=== PATIENT | female | born 1985 | race Caucasian/White ===

== ENCOUNTER 2020-04-14 01:06 | Outpatient (CLI) | payer MEDICAID, SELFPAY ==
--- NOTE | 2020-04-14 07:15 | DI.US_ITS ---
EXAM: US EXTREMITY VENOUS BI CLINICAL HISTORY: Unexplained LE edema,bilat r60.0. TECHNIQUE: Ultrasound performed using standard protocol. COMPARISON: US [facility] OB ULTRASOUND from 12/10/2012 FINDINGS: Duplex venous ultrasound was performed bilaterally according to the usual protocol. The deep veins ar e freely compressible throughout and there is normal flow augmentation with manual calf compression. 2D and Doppler evaluation are unremarkable. IMPRESSION: No evidence of deep venous thrombosis of the right or left lower extremity. DATA REPOSITORY:
== END 2020-04-14 01:26 ==
PROVIDERS: PCP Family Medicine; Visit Provider Family Medicine
DX: R60.0 Localized edema (principal)
CPT/HCPCS: 36415; 80053; 93970

== ENCOUNTER 2020-04-22 03:37 | Outpatient (CLI) | payer MEDICAID, SELFPAY ==
[2020-04-22] MEDS: Breeza Beverage 473 ML BTL PO ×2 (07:58→07:59)
[2020-04-22] MEDS: Omnipaque 350 MG/ML 50 ML BTL PO (07:58)
[2020-04-22] MEDS: Omnipaque 350 MG/ML 100 ML BTL IJ (08:49)
--- NOTE | 2020-04-22 08:57 | DI.CT_ITS ---
EXAM: CT ABDOMEN PELVIS W CLINICAL HISTORY: Unexplained edema, evaluate for pelvic/abd mass TECHNIQUE: Imaging Protocol: Axial computed tomography images with coronal and sagittal reformatted images were created and reviewed CONTRAST MATERIAL: Intravenous: Omnipaque 350 Contrast volume:100 mL Oral: Yes COMPARISON: CT ABD PELVIS WITH CONTRAST from 11/12/2014 FINDINGS: ABDOMEN: Lung Bases: Normal where visualized. Liver: Diffuse decreased attenuation of the liver consistent with fatty infiltration. No measurable mass. Portal, Superior Mesenteric, and Splenic Veins: Unremarkable. Gallbladder and Biliary Tract: No radiodense calculus or dilation. Pancreas: Normal density, no abnormal calcifications or inflammatory process. Spleen: Normal. Adrenals: No masses seen. Kidneys: Normal size, contour and axis. No radiodense stones or obstructive uropathy. No masses seen. Abdominal Aorta: Abdominal portion non-dilated. Mild atherosclerosis. Bowel: No obstruction or bowel wall thickening. No evidence of appendicitis. Small hiatal hernia. Peritoneal Cavity: No ascites, collection or mesenteric inflammatory response. No free air. Lymph Nodes: Within normal limits. Bones: Within normal limits for the patient's age. Soft Tissues: Unremarkable. PELVIS: Bladder: Symmetric distention, no gross wall thickening. Reproductive Organs: Unremarkable as visualized. Lymph Nodes: Within normal limits. Bones: Within normal limits for the patient's age. IMPRESSION: Unremarkable CT scan of the abdomen and pelvis. No evidence of a pelvic mass. RADIATION DOSE DELIVERED: 819.4mGy.cm Total DLP DATA REPOSITORY: All CT scans at this facility are submitted to the National Radiology Data Registry (NRDR) Dose Index Registry (DIR) with the [employer] (ACR). RADIATION OPTIMIZATION: All CT scans at this facility use at least one of these dose optimization te chniques: automated exposure control; mA and/or kV adjustment per patient size (includes targeted exa ms where dose is matched to clinical indication); or iterative reconstruction.
[2020-04-22] MEDS: Normal Saline Flush 10 ML SYR IVP (09:06)
[2020-04-22] MEDS: Normal Saline - Diluent 50 ML VIAL IV (09:06)
== END 2020-04-22 03:57 ==
PROVIDERS: PCP Family Medicine; Visit Provider Family Medicine
DX: R60.0 Localized edema (principal)
CPT/HCPCS: 74177; J3490; Q9967

== ENCOUNTER 2020-05-11 01:56 | Outpatient (CLI) | payer MEDICAID, SELFPAY ==
--- NOTE | 2020-05-11 10:20 | DI.US_ITS ---
APPROVED REPORT EXAM: Comprehensive 2D, Doppler, and color-flow Echocardiogram Patient Location: Out-Patient Manager Staffing: Genny Johnson RDCS (AE) Indications: Bilateral Edema, Dyspnea, smoker Other Information Study Quality: Adequate Conclusion Left Ventricle : The left ventricle is normal size. The left ventricular systolic function is normal. The left ventricular ejection fraction is within the normal range. There is normal left ventricular wall thickness. There is normal LV segmental wall motion. The left ventricular diastolic function is normal. LVEF is 61%. Right Ventricle : The right ventricle is normal size. The right ventricular systolic function is norm al. Atria : The left atrium size is normal. The right atrium size is normal. Valves: There are no hemodynamically significant valvular lesions. Great Vessels : The aortic root is normal in size. The ascending aorta is normal in size. Aortic arch is normal in caliber. IVC is normal in size and collapses >50% with inspiration. Please see remainder of study for further details. Wall motion Left Ventricle The left ventricle is normal size. The left ventricular systolic function is normal. The left ventric ular ejection fraction is within the normal range. There is normal left ventricular wall thickness. T here is normal LV segmental wall motion. The left ventricular diastolic function is normal. There is no ventricular septal defect visualized. LVEF is 61%. Right Ventricle The right ventricle is normal size. The right ventricular systolic function is normal. Atria The left atrium size is normal. The right atrium size is normal. The interatrial septum is intact wit h no evidence for an atrial septal defect. Aortic Valve The aortic valve is normal in structure. Aortic valve is trileaflet. There is no aortic valvular sten osis. Trace aortic regurgitation. Mitral Valve Mild mitral annular calcification. No evidence of mitral valve stenosis. Trace mitral regurgitation. Tricuspid Valve The tricuspid valve is normal in structure. There is no tricuspid valve stenosis. Trace tricuspid reg urgitation. Unable to assess PA pressure. Pulmonic Valve The pulmonary valve is normal in structure. There is no pulmonic valvular stenosis. Trace pulmonic re gurgitation. Great Vessels The aortic root is normal in size. The ascending aorta is normal in size. Aortic arch is normal in ca liber. IVC is normal in size and collapses >50% with inspiration. Pericardium There is no pericardial effusion. 2D Dimensions IVSD d PLAX 0.89 cm F: 0.6-1.0 LV Vol A2C d MOD 108.0 mL LVPW d PLAX 0.86 cm F: 0.6 - 1.0 LV Vol A4C d MOD 89.1 mL LVID d PLAX 4.69 cm F: 3.8 - 5.2 LA vol/ BSA A2C s A-L 26.2 mL/m2 LVDs 3.10 cm F: 2.2 - 3.5 LA vol/ BSA A4C s A-L 20.1 mL/m2 Ao Root d 2.65 cm F: 2.7 - 3.3 LA Vol/ BSA Biplane s A-L 23.6 mL/m2 RA Area A4C 14.92 cm2 LA Area A4C s MOD 15.28 cm2 RA Vol/ BSA A4C s A-L 20.7 mL/m2 LA Area A2C s MOD 17.01 cm2 Ao Asc Diam d 3.02 cm F: 2.3 - 3.1 LV EF A4C MOD 61.3 % LV EF Teichholz 62.3 % LV EF A2C MOD 61.9 % LVEF (Payan's) 60.17 % F: 54 - 74 LV EF Biplane MOD 60.2 % LV Volume 77.40 mL F: 46 - 106 SV 60.66 mL LV Volume Index 41.61 mL/m2 F: 29 - 61 SV Index 32.49 mL/m2 LV Vol Biplane MOD 100.8 mL FS 33.55 % M-Mode TAPSE 2.04 cm (M/F) >1.7 LV Diastology MV E' medial 0.107 (>0.07 m/s) E/A Ratio 1.2 LV E/e MED 9.20 (<14) MV E Vmax 0.98 (0.4-1.3 m/s) MV E' lateral 0.148 (>0.1 m/s) MV A Vmax 0.80 (0.4-1.3 m/s) LV E/e LAT 6.65 (<14) MV E/A Ratio 1.17 MV E/E' medial 9.23 MV E/E' lateral 6.66 Aortic Valve LVOT Area 3.02 cm2 AoV Area Vmax 2.45 cm2 LVOT Vmax 1.40 m/s AoV Area/ BSA (Vmax) 1.31 cm2/m2 LVOT Mean [place]. 0.88 m/s CHUNG Mean [place]. 2.46 cm2 LVOT Peak Grad 7.8 mmHg CHUNG Mean [place]. Index 1.32 cm2/m2 LVOT Mean Grad 3.7 mmHg LVOT VTI 0.317 m LVOT Diam s 1.95 cm AoV Vmax 1.73 m/s Velocity Ratio 0.80 AoV Mean [place]. 1.08 m/s AoV Peak Grad 12.0 mmHg LVOT SV 95.93 mL AoV Mean Grad 5.6 mmHg AoV VTI 0.309 m AoV Area VTI 3.10 cm2 AoV Area/ BSA (VTI) 1.66 cm/m2 Mitral Valve MV DT 234 (160-240 msec) MV PHT 68 msec MV Area PHT 3.24 cm2 MV VTI 0.427 m MV VTI Annulus 0.421 m MV Area VTI 2.21 (4.0-6.0 cm2) Pulmonary Valve PV Vmax 1.17 (0.5-1.5 m/s) RVOT Peak Gr. 4.29 mmHg PV Peak Grad 5.4 mmHg RVOT Mean Gr. 1.85 mmHg PV Mean Grad 3.0 mmHg RVOT VTI 0.197 m PV VTI 0.254 m RVOT Vmax 1.04 m/s
== END 2020-05-11 01:57 ==
LOC: DI 01:57
PROVIDERS: PCP Family Medicine; Visit Provider Family Medicine
DX: R60.0 Localized edema (principal); R06.00 Dyspnea, unspecified; F17.210 Nicotine dependence, cigarettes, uncomplicated
CPT/HCPCS: 93306

== ENCOUNTER 2021-05-24 20:33 | Emergency (ER) | payer MEDICAID, SELFPAY ==
[2021-05-24 20:37] VITALS: BP 150/91; PULSE 73; RESP 18; TEMP 36.9; O2SAT 99
--- NOTE | 2021-05-24 20:58 | ED.GENADUL_ITS ---
Discharge Plan Disposition Patient Disposition: HOME Condition: Improving Discharge Details Clinical Impression: Acute facial pain Primary Care Provider: Ruben Valentin ED Provider: Phan Campuzano Home Meds and New Rx's Prescriptions: Continued cetirizine 10 mg tablet 10 mg PO DAILY Qty: 90 3RF buspirone 10 mg tablet 10 mg PO BID Qty: 180 3RF furosemide 20 mg tablet 20 mg PO DAILY PRN (Reason: swelling) Qty: 60 0RF pantoprazole 40 mg tablet,delayed release (DR/EC) 40 mg PO DAILY Qty: 90 3RF methadone 10 mg tablet 50 mg PO DAILY 0RF albuterol sulfate [ProAir HFA] 90 mcg/actuation HFA aerosol inhaler 1 puff Inhalation Q4H PRN (Reason: shortness of breath or wheezing) Qty: 18 3RF acetaminophen [Acetaminophen Extra Strength] 500 MG tablet 1,000 mg PO PRN [id number] Discharge Instructions Instructions: Temporomandibular Disorder (ED) Additional Instructions: Continue with ibuprofen and Tylenol as needed, ice or heat as needed, if you develop any strange neurologic symptomatology such as severe headache nausea vomiting weakness change in speech please return to the emergency department. Please follow-up with your primary care physician. Medical Decision Making 35-year-old female currently in the methadone program, history of TMJ syndrome, presents with acute onset left ear and jaw discomfort, afebrile nontoxic neurologically intact, TMs unremarkable, no evidence of deep space infection of mouth head or neck, no external signs of trauma the patient describes having 3 days ago involving a folding chair leg, likely TMJ syndrome versus atypical migraine versus dental pain versus less likely intracranial injury from contact with folding chair given this event happened 3 days ago without symptomatology and with neuro exam intact, no evidence of TM rupture or otitis media. Trial of dexamethasone and acetaminophen. Patient already endorsing feeling better before medication administered likely discharge home with home care instructions and encouragement to follow-up 22: 13 patient resting comfortably feeling much better after medications. Neuro logically intact. Symptomatology largely resolved. Home care instructions and return precautions given HPI General Date/Time Provider Initiated Documentation: 05/24/21 20:44 . HPI Narrative: 35-year-old female history of opiate abuse, currently enrolled in a methadone program, TMJ, presents with left jaw and ear discomfort that began approximately 1 hour ago, patient endorses she actually was struck by the legs of a folding chair 3 days ago on the left side of her face, denies loss of conscious vomiting weakness or numbness, denies fevers or chills, does endorse chronic dental issues but denies any trouble swallowing, or speaking Related Data Home Medications Medication Instructions Recorded Confirmed acetaminophen 500 mg tablet 1,000 mg PO PRN PRN 02/23/17 05/24/21 (Acetaminophen Extra Strength) buspirone 10 mg tablet 10 mg PO BID #180 tab 12/31/19 05/24/21 methadone 10 mg tablet 50 mg PO DAILY tab 12/31/19 05/24/21 cetirizine 10 mg tablet 10 mg PO DAILY #90 tab 03/29/20 05/24/21 furosemide 20 mg tablet 20 mg PO DAILY PRN #60 tab 04/07/20 05/24/21 albuterol sulfate 90 mcg/actuation 1 puff INHALATION Q4H PRN #18 g 05/08/21 05/24/21 aerosol inhaler (ProAir HFA) pantoprazole 40 mg tablet,delayed 40 mg PO DAILY #90 tab 05/09/21 05/24/21 release Previous Rx's Medication Instructions Recorded buspirone 10 mg tablet 10 mg PO BID #180 tab 12/31/19 cetirizine 10 mg tablet 10 mg PO DAILY #90 tab 03/29/20 furosemide 20 mg tablet 20 mg PO DAILY PRN #60 tab 04/07/20 albuterol sulfate 90 mcg/actuation 1 puff INHALATION Q4H PRN #18 g 05/08/21 aerosol inhaler (ProAir HFA) pantoprazole 40 mg tablet,delayed 40 mg PO DAILY #90 tab 05/09/21 release Allergies Allergy/AdvReac Type Severity Reaction Status Date / Time No Known Drug Allergies Allergy Verified 05/24/21 20:41 General Stated Complaint: DentalOral JEFF: 4 Review of Systems Narrative: Review of Systems Constitutional: negative Eyes: negative ENT: Left facial pain/ear pain Cardiovascular: negative Respiratory: negative Gastrointestinal: negative : negative Musculoskeletal: negative Skin: negative Neurologic: negative Psych: negative PFSH All Active Problems (Updated 05/24/21 @ 22:14 by Phan Campuzano MD) Acute facial pain (Acute) Bilateral lower extremity edema (Acute) Tobacco use disorder (Chronic) PPD Heartburn (Acute 02/19/13) CTS (carpal tunnel syndrome) (Acute) Mild intermittent asthma (Acute) TMJ syndrome (Acute) Medical History (Updated 05/24/21 @ 22:14 by Phan Campuzano MD) Acute low back pain (02/19/13) Asthma inhaler prn Surgical History (Updated 11/23/19 @ 16:01 by Socorro Guzman RN) Cervical Procedure (~2001) cryosurgery Fracture, Closed Treatment leg H/O tubal ligation 2019 History of appendectomy (~04/1994) Family History (Updated 11/23/19 @ 15:50 by Socorro Guzman RN) Mother Skin cancer Cervical cancer Father Hypertension Alcohol abuse Maternal Grandmother Stroke Anxiety Social History (Updated 04/07/20 @ 09:38 by Mitra Padilla LPN) Smoking/Tobacco Use Status: Current every day Tobacco Type: cigarettes Smoking packs per day: 1 Smoking cigarettes per day: 20.0 Smoking risk assessment performed?: Yes Alcohol Intake: never Drug use: Daily Substance use type: marijuana Adopted: No Foster care: No Household members: spouse Housing: house Number of Children: 3 Do you need help understanding health information?: Rarely Sexually active: Yes Do you think of yourself as: straight/heterosexual Current gender identity: female What is your relationship status?: Panel score (0-1 are the most socially isolated patients): 1 What type of physical activity do you participate in: regular exercise Seatbelt use: always Drive intox or ride w/intox 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 Working smoke detector in home: Yes Fire extinguisher in home: Yes Carbon monox detector in home: Yes Do you feel safe at home: Yes Do you feel safe in your relationship?: Yes Exam Narrative Exam Narrative: Physical Examination General: alert, awake, cooperative, resting comfortably, no acute distress HEENT: normocephalic, atraumatic; PERRL, EOM intact, conjunctiva normal; no nasal discharge; moist mucous membranes, oral and pharyngeal mucosa normal, tolerating secretions; TMs unremarkable, no crepitus to TMJ, multiple dental caries without evidence of periapical abscess, no induration of submental submandibular or sublingual space. Normal voice, no rash to face; no evidence of ecchymosis deformity abrasion or laceration at site of contact with folding chair leg Neck: supple, trachea midline; full ROM Chest: normal to inspection Respiratory: normal respiratory effort, speaking in full sentences, clear to auscultation, no wheezing, rales or rhonchi Cardiac: regular rate, regular rhythm, S1S2 intact, no murmurs rubs or gallops GI: abdomen soft, non-tender, non-distended; no palpable mass or hepatosplenomegaly Skin: no lesions, rashes or trauma appreciated Neuro: AAOx3, normal speech, moving all extremities Psych: Appropriate mood and affect Course Vital Signs Vital signs: Vital Signs Temperature 36.9 C 05/24/21 20:37 Pulse 73 05/24/21 20:37 Respiratory Rate 18 05/24/21 20:37 Blood Pressure 150/91 H 05/24/21 20:37 Pulse Oximetry 99 05/24/21 20:37 Temperature 36.9 C 05/24/21 20:37 Temperature Source Temporal Artery Scan 05/24/21 20:37 Pulse 73 05/24/21 20:37 Respiratory Rate 18 05/24/21 20:37 Respiratory Effort Non-Labored 05/24/21 20:42 Blood Pressure 150/91 H 05/24/21 20:37 Blood Pressure Position Sitting 05/24/21 20:37 Pulse Oximetry 99 05/24/21 20:37 Oxygen Delivery Method Room Air 05/24/21 20:37 Oxygen Flow Rate 0 05/24/21 20:37
[2021-05-24] MEDS: Dexamethasone 4 MG TAB 10 MG PO (21:03)
[2021-05-24] MEDS: Acetaminophen 325 MG TAB 650 MG PO (21:03)
== END 2021-05-24 22:18 | disposition home or self-care (01) ==
PROVIDERS: Emergency Provider Emergency Medicine; PCP Family Medicine
DX: R68.84 Jaw pain (principal); R51.9 Headache, unspecified; H92.02 Otalgia, left ear
CPT/HCPCS: 99282; J8540

== ENCOUNTER 2021-05-25 00:42 | Outpatient (CLI) | payer MEDICAID, SELFPAY ==
--- NOTE | 2021-05-25 06:15 | DI.US_ITS ---
Exam(s) US ABDOMEN EXAM: US ABDOMEN CLINICAL HISTORY: Previously seen, needs reassessment,fatty liver, r76.0 TECHNIQUE: Ultrasound of complete upper abdomen performed using standard protocol. COMPARISON: CT scan April 2020 was reviewed FINDINGS: There is no ascites LIVER: Hyperechoic indicating steatosis. Upper normal size. No distinct lesions. GALLBLADDER/BILIARY: Gallbladder is contracted and not well visualized on this study. The common hepatic duct isnot dilated, measuring 4-5mm at the level of rebel hepatis. PANCREAS: There is no evidence of pancreatic mass nor dilatation of the pancreatic duct. SPLEEN: The spleen is not enlarged and there are no intrasplenic lesions evident. KIDNEYS:Kidneys exhibit normal size with no evidence of solid mass, calculus, nor hydronephrosis. No cortical cysts evident. ABDOMINAL AORTA: There is no evidence of abdominal aortic aneurysm. IVC: Normal diameter where visualized. IMPRESSION: 1. Gallbladder is contracted and not very well visualized on this study 2. Hepatic steatosis noted. Correlation with appropriate hepatic blood work recommended. There are no discrete focal hepatic lesions evident 3. There is no ascites. DATA REPOSITORY:
== END 2021-05-25 01:02 ==
PROVIDERS: PCP Family Medicine; Visit Provider Family Medicine
DX: K76.0 Fatty (change of) liver, not elsewhere classified (principal)
CPT/HCPCS: 76700

== ENCOUNTER 2021-06-02 03:16 | Outpatient (CLI) | payer MEDICAID, SELFPAY ==
[2021-06-02 16:54] LABS: Iron 67 ug/dL (50-170); Total Iron Binding Capacity 425 ug/dL (250-450); Transferrin Sat 16 % (15-50)
[2021-06-02 17:05] LABS: ALT 55 U/L (14-59); AST 31 U/L (15-37); Albumin 3.6 g/dL (3.4-5.0); Alkaline Phosphatase 121 U/L (46-116); Anion Gap 8.3 mmol/L (3-11); BUN 12 mg/dL (7-18); Bilirubin, Total 0.3 mg/dL (0.2-1.0); CO2 26.7 mmol/L (21.0-32.0); CREATININE 0.8 mg/dL (0.55-1.02); Calcium 8.7 mg/dL (8.5-10.1); Chloride 101 mmol/L (98-107); Ferritin 53 ng/mL (8-252); Glucose 140 mg/dL (74-106); Sodium 136 mmol/L (136-145); TSH (W/Ref FT4) 2.23 uIU/mL (0.36-3.74); Total Protein 7.3 g/dL (6.4-8.2)
[2021-06-03 14:10] LABS: Ceruloplasmin 28.6 mg/dL
[2021-06-03 15:50] LABS: Smooth Muscle Ab Screen Negative (Negative)
[2021-06-05 10:23] LABS: Hepatitis C Ab w Rflx HCV PCR Negative (Negative)
[2021-06-05 11:00] LABS: Alpha 1 Antitrypsin,Serum 165 mg/dL (90-200)
[2021-06-05 11:53] LABS: Hep A Total Ab w Rflx IgM Negative (Negative)
[2021-06-05 13:30] LABS: Hepatitis B Surface Ag Negative (Negative)
[2021-06-05 14:25] LABS: ANA Interpretation Negative (Negative)
[2021-06-05 20:00] LABS: Liver/Kidney Microsome Type 1 <5.0 U
== END 2021-06-02 03:17 | disposition home or self-care (01) ==
LOC: LBO 03:16
PROVIDERS: PCP Family Medicine; Visit Provider Family Medicine
DX: K76.0 Fatty (change of) liver, not elsewhere classified (principal)
CPT/HCPCS: 36415; 80053; 82390; 86709; 86803; 87340; 82103; 82728; 83540; 83550; 84443; 86038; 86255

== ENCOUNTER 2023-04-17 02:50 | Outpatient (CLI) | payer MEDICAID, SELFPAY ==
[2023-04-17 10:22] LABS: ALT 27 U/L (14-59); AST 18 U/L (15-37); Albumin 3.3 g/dL (3.4-5.0); Alkaline Phosphatase 135 U/L (46-116); BUN 8 mg/dL (7-18); Bilirubin, Total 0.6 mg/dL (0.2-1.0); CREATININE 0.9 mg/dL (0.55-1.02); Calcium 8.8 mg/dL (8.5-10.1); Calculated LDL 214 mg/dL (<100); Chloride 101 mmol/L (98-107); Cholesterol 290 mg/dL (<200); Glucose 108 mg/dL (74-106); HDL Cholesterol 47 mg/dL (40-60); Sodium 136 mmol/L (136-145); Triglyceride 145 mg/dL (<150)
== END 2023-04-17 02:51 | disposition home or self-care (01) ==
LOC: LBO 02:50
PROVIDERS: Absent Provider Family Medicine; PCP Family Medicine; Referring Provider Family Medicine; Visit Provider Family Medicine
DX: Z13.6 Encounter for screening for cardiovascular disorders (principal)
CPT/HCPCS: 36415; 80053; 80061

== ENCOUNTER 2023-05-08 07:27 | Outpatient (REF) | payer MEDICAID, SELFPAY | END 2023-05-08 07:28 | disposition home or self-care (01) | LOC: NCHCN 07:27 | PROVIDERS: PCP Family Medicine; Visit Provider Nurse Practitioner Family | DX: R11.10 Vomiting, unspecified (principal); R10.32 Left lower quadrant pain | CPT/HCPCS: 87086 ==

== ENCOUNTER 2023-05-08 11:18 | Outpatient (CLI) | payer MEDICAID, SELFPAY ==
[2023-05-08 12:19] LABS: Abs Immature Grans 0.04 10^3/uL (0.0-0.06); Absolute Basophil Count 0.05 10^3/uL (0.0-0.2); Absolute Lymphocyte Count 2.48 10^3/uL (1.2-3.4); Absolute Monocyte Count 0.61 10^3/uL (0.1-0.8); Absolute Neutrophil Count 4.51 10^3/uL (1.2-6.7); Basophils % 0.6; Eosinophils % 1.3; HCT 50.4 % (36.0-46.0); HGB 16.2 g/dL (11.2-15.7); Immature Grans % 0.5; Lymphocytes % 31.8; MCH 25.8 pg (27.0-33.0); MCHC 32.1 % (32.0-36.0); MCV 80 fL (80-95); MPV 10.2 fL (8.0-11.0); Monocytes % 7.8; Platelet Count 247 10^3/uL (130-400); RBC 6.27 10^6/uL (3.93-5.22); RDW 15.3 % (11.7-14.6); WBC 7.79 10^3/uL (4.4-10.8)
[2023-05-08 12:33] LABS: ALT 43 U/L (14-59); AST 32 U/L (15-37); Albumin 3.7 g/dL (3.4-5.0); Alkaline Phosphatase 128 U/L (46-116); Anion Gap 11.5 mmol/L (3-11); BUN 15 mg/dL (7-18); Bilirubin, Total 0.6 mg/dL (0.2-1.0); CO2 27.5 mmol/L (21.0-32.0); CREATININE 0.9 mg/dL (0.55-1.02); Calcium 9.5 mg/dL (8.5-10.1); Chloride 98 mmol/L (98-107); Glucose 130 mg/dL (74-106); Potassium 3.7 mmol/L (3.5-5.1); Sodium 137 mmol/L (136-145)
[2023-05-08 12:53] LABS: Diff Comment Diff Reviewed; RBC Morphology Normal
== END 2023-05-08 11:19 | disposition home or self-care (01) ==
LOC: LOS 11:18
PROVIDERS: PCP Family Medicine; Referring Provider Nurse Practitioner Family; Visit Provider Nurse Practitioner Family
DX: R10.9 Unspecified abdominal pain (principal)
CPT/HCPCS: 36415; 80053; 85025

== ENCOUNTER 2024-02-11 05:00 | Outpatient (CLI) | payer MEDICAID, SELFPAY ==
[2024-02-11 10:45] LABS: HCT 45.3 % (36.0-46.0); HGB 14.6 g/dL (11.2-15.7); MCH 26.5 pg (27.0-33.0); MCHC 32.2 % (32.0-36.0); MCV 82 fL (80-95); MPV 10.2 fL (8.0-11.0); Platelet Count 228 10^3/uL (130-400); RBC 5.51 10^6/uL (3.93-5.22); RDW 14.6 % (11.7-14.6); RDW-SD 43.6 fL; WBC 9.94 10^3/uL (4.4-10.8)
[2024-02-11 11:16] LABS: ALT 22 U/L (14-59); AST 12 U/L (15-37); Albumin 3.3 g/dL (3.4-5.0); Alkaline Phosphatase 158 U/L (46-116); Anion Gap 7.4 mmol/L (3-11); BUN 14 mg/dL (7-18); Bilirubin, Total 0.35 mg/dL (0.2-1.0); CO2 29.6 mmol/L (21.0-32.0); CREATININE 0.8 mg/dL (0.55-1.02); Calcium 9.3 mg/dL (8.5-10.1); Chloride 103 mmol/L (98-107); Estimated GFR 95.46 (mL/min/1.73m2); Glucose 111 mg/dL (74-106); Potassium 4.3 mmol/L (3.5-5.1); Sodium 140 mmol/L (136-145); Total Protein 7.9 g/dL (6.4-8.2)
== END 2024-02-11 05:01 | disposition home or self-care (01) ==
LOC: LBO 05:00
PROVIDERS: Absent Provider Family Medicine; PCP Family Medicine; Referring Provider Family Medicine; Visit Provider Family Medicine
DX: R73.03 Prediabetes (principal); R53.83 Other fatigue; M54.2 Cervicalgia; N20.0 Calculus of kidney; G47.00 Insomnia, unspecified
CPT/HCPCS: 36415; 80053; 85027; 84443

== ENCOUNTER 2024-09-23 00:24 | Outpatient (CLI) | payer MEDICAID, SELFPAY ==
--- NOTE | 2024-09-23 11:48 | DI.MAMMO_ITS ---
Exam(s) MAMMO SCREENING EXAM: MAMMO SCREENING CLINICAL HISTORY: screening,z12.39 TECHNIQUE: Mammograms were interpreted according to the usual protocol including computer analysis with CAD system, tomosynthesis and C-view imaging. COMPARISON: None. Baseline examination. FINDINGS: The breasts are composed of heterogeneously dense fibroglandular densities, Breast Density category C. No suspicious masses or suspicious microcalcifications are seen. No skin thickening or abnormal axillary lymph nodes are seen. IMPRESSION: BI-RADS Category 1, Negative mammogram. Yearly screening mammography is recommended. Breast Density: Category C - The breasts are heterogeneously dense, which may obscure small masses. Breast density Category C or D implies that the patient has dense breast tissue. Dense breast tissue can make it harder to find cancer on a mammogram. Dense breast tissue is also associated with an increased risk of breast cancer. This information about the result of the mammogram report was provided to the patient to raise their awareness. Use this report when you speak with the patient about their risks for breast cancer, which includes their family history. At that time, you may recommend additional screening tests (Ultrasound or MRI) as these tests may add significant information. A negative radiographic report should not delay biopsy if a dominant or clinically suspicious mass is present. Up to ten percent of cancers are not identified on mammography. A negative report may reinforce clinical impression. Adenosis and dense breasts may obscure an underlying neoplasm. False positive reports average 6 to 10%.
== END 2024-09-23 00:44 ==
LOC: DI 00:24
PROVIDERS: PCP Family Medicine; Visit Provider Family Medicine
DX: Z12.31 Encounter for screening mammogram for malignant neoplasm of breast (principal); R92.333 Mammographic heterogeneous density, bilateral breasts
CPT/HCPCS: 77063; 77067